=== PATIENT | female | born 1970 | race Hispanic/Latino ===

== ENCOUNTER 2021-09-24 03:10 | Emergency (ER) | payer OTHER ==
[2021-09-24] MEDS ORDERED: ETOMIDATE 20 MG/10 ML VIAL IV ONE (03:11)
[2021-09-24] MEDS ORDERED: ROCURONIUM 50 MG/5 ML VIAL IV ONE (03:11)
--- OUTSIDE RECORDS SUMMARY | 2021-09-24 03:14 | XMS REPORT | Continuity of Care Document ---
:[address] [facility] t Address [address] [place] [address] Care Team Providers Name Role Phone Pcp, Patient Does Not Have A Primary Care Physician [id number] REZA ZAVALETA Attending Clinician Unavailable Reza Zavaleta DO Attending Clinician Caleb Pavon MD Attending Clinician Kylah Chi RN Attending Clinician Unavailable JACKIE SEBASTIAN Attending Clinician Unavailable Only, Ang Db Test Attending Clinician Unavailable Jackie Campbell Attending Clinician Doctor Unassigned, Otho Attending Clinician Unavailable Therapy, Pcp Covid Infusion Attending Clinician Unavailable Christopher Burkett MD Attending Clinician CHRISTOPHER BURKETT Attending Clinician Unavailable Whitley Gu RN Attending Clinician Unavailable Ai Vasquez MD Attending Clinician Payers Payer Name Policy Type Policy Number Effective Date Expiration Date [facility] [id number] 2020 MEDICAID 00:00:00 Problems Condition Condition Condition Status Onset Resolution Last Treating Co mments Source Name Details Category Date Date Treatment Clinician Date Abdominal Abdominal Disease Active Uni vers pain, pain, 7-20 ity of unspec[place] 00 Medical abdominal abdominal Bran ch location location Altered Altered Disease Active Univers mental mental 7-17 ity of status, status, 00:00: [place] unspecifie unspecifie 00 Me dical d altered d altered Bran ch mental mental status status type type Fever of Fever of Disease Active Unive rs unknown unknown 6-04 ity of origin origin 00:00: [place] [facility] Hypokalemi Hypokalemi Disease Active U nivers a a 5-23 ity of 00:00: [place] 00 Medical Branch E46 E46 Disease Active Univers Unspecifie Unspecifie 4-07 it y of d severe d severe 00:00: [place] protein-ca protein-ca 00 Me dical davion davion Branch malnutriti malnutriti on on Streptococ Streptococ Disease Active U nivers geovany geovany 4-05 ity of bacteremia bacteremia [place] Splenic Splenic Disease Active Univers artery artery 2-14 ity of aneurysm aneurysm 00:00: [place] [facility] Alcoholic Alcoholic Disease Active Uni vers cirrhosis cirrhosis 1-30 ity of of liver of liver 00:00: [place] with with 00 Medical ascites ascites Branch Pre-liver Pre-liver Disease Active Overview: Univers transplant transplant 6-25 Formattin ity of , listed , listed 00:00: g of this [place] 00 note Medical might be Branch different from the original. Added automatic ally from request for surgery [id number] Encounter Encounter Disease Active Uni vers for other for other 1-20 ity of general general 00:00: [place] counseling counseling 00 Me dical or advice or advice Bran ch on on contracept contracept ion ion Menopausal Menopausal Disease Active U nivers state state 1-20 ity of 00:00: [place] [facility] Upper Upper Disease Active Univers abdominal abdominal 1-07 ity of pain pain 00:00: [place] [facility] Alcoholic Alcoholic Disease Active 2019-02 Overview: Univers cirrhosis, cirrhosis, 2-18 Formattin ity of unspecifie unspecifie 00:00: g of this [place] d whether d whether 00 note Medi geovany ascites ascites might be Branch present present different from the original. Added automatic ally from request for surgery [id number] Portal Portal Disease Active 2019-02 Overview: Univer s hypertensi hypertensi 2-18 Formattin ity of on on 00:00: g of this [place] 00 note Medical might be Branch different from the original. Added automatic ally from request for surgery [id number] Thrombocyt Thrombocyt Disease Active 2019-02 Overview : Univers openia openia 2-18 Formattin ity of 00:00: g of this [place] 00 note Medical might be Branch different from the original. Added automatic ally from request for surgery [id number] Right Right Disease Active Univers sided sided 2-07 ity of colitis colitis 00:00: [place] 00 Medical Branch Respirator Respirator Disease Active 2018-02 U nivers y failure y failure 2-28 ity of 00:00: [place] 00 Medical Branch Heart burn Heart burn Disease Active Overview : Univers 8-20 Formattin ity of 00:00: g of this [place] 00 note Medical might be Branch different from the original. Added automatic ally from request for surgery [id number] Abdominal Abdominal Disease Active Uni vers pain pain 6-21 ity of 00:00: [place] 00 Medical Branch Colitis Colitis Disease Active Univers 1-19 ity of 00:00: [place] 00 Medical Branch Alcoholic Alcoholic Disease Active 2017-02 Overview: Univers cirrhosis cirrhosis 0-23 Formattin i ty of of liver of liver 00:00: g of this [place] without without 00 note Medical ascites ascites might be Branch different from the original. Added automatic ally from request for surgery [id number] Esophageal Esophageal Disease Active 2017-02 Overview : Univers varices varices 0-23 Formattin ity o f without without 00:00: g of this [place] bleeding, bleeding, 00 note Medi geovany unspecifie unspecifie might be Branch d d different esophageal esophageal from the varices varices original. type type Added automatic ally from request for surgery [id number] Alcohol Alcohol Disease Active 2017-02 Overview: Univ ers dependence dependence 0-23 Formattin ity of in in 00:00: g of this [place] remission remission 00 note Medi geovany might be Branch different from the original. Added automatic ally from request for surgery [id number] Iron Iron Disease Active 2017-02 Overview: Univer s deficiency deficiency 0-23 Formattin ity of anemia, anemia, 00:00: g of this [place] unspecifie unspecifie 00 note Me dical d iron d iron might be Branch deficiency deficiency different anemia anemia from the type type original. Added automatic ally from request for surgery [id number] Hx of type Hx of type Disease Active 2017-02 Overview : Univers B viral B viral 0-23 Formattin ity o f hepatitis hepatitis 00:00: g of this [place] 00 note Medical might be Branch different from the original. Added automatic ally from request for surgery [id number] Gastroesop Gastroesop Disease Active 2017-02 Overview : Univers hageal hageal 0-23 Formattin ity of reflux reflux 00:00: g of this [place] disease, disease, 00 note Medica l esophagiti esophagiti might be Branch s presence s presence different not not from the specified specified original. Added automatic ally from request for surgery [id number] Hepatic Hepatic Disease Active Univers encephalop encephalop 3-03 it y of athy athy 00:00: [place] 00 Medical Branch Urinary Urinary Disease Active Univers retention retention 3-02 ity of 00:00: [place] 00 Medical Branch Iron Iron Disease Active 2016-02 Univers deficiency deficiency 1-09 it y of anemia anemia 00:00: [place] 00 Medical Branch GIB GIB Disease Active Univers (gastroint (gastroint 5-14 it y of estinal estinal 00:00: [place] bleeding) bleeding) 00 [facility] geovany Branch Ascites Ascites Disease Active Univers 8-25 ity of 00:00: [place] 00 Medical Branch No known No known Disease Unive rs active active ity of problems problems [facility] Allergies, Adverse Reactions, Alerts Allergy Allergy Status Severity Reaction(s) Onset Inactive Treating Comm ents Source Name Type Date Date Clinician ASPIRIN DRUG Active Unknown-Cmnt Uni vers INGREDI 5-14 ity of 00:00: [place] 00 Medical Branch Aspirin Propensi Active Unknown - Univ ers ty to See comments 14 ity of adverse 00:00: [place] reaction 00 Medical s Branch NO KNOWN Drug Active [facility] ALLERGIE Class ity of S [facility] Social History Social Habit Start Date Stop Date Quantity Comments Source History SDND University o f Alcohol Frequency [place] [facility] History [facility] University o f Alcohol Std Drinks [place] [facility] [place] History [facility] University o f Alcohol Binge [place] [facility] History of tobacco Passive smoker Un iversity of use [facility] Exposure to 2021-09-13 2021-09-23 Unable to assess Univers ity of SARS-CoV-2 (event) 00:00:00 14:53:00 [facility] Alcohol intake 2021-09-23 2021-09-23 Current University of 00:00:00 00:00:00 non-drinker of [facility] alcohol Branch (finding) Cigarettes smoked 2021-09-04 2021-09-04 Univers ity of current (pack per 00:00:00 00:00:00 [facility]) - Reported Branch Cigarette 2021-09-04 2021-09-04 University of pack-years 00:00:00 00:00:00 [facility] Tobacco use and 2021-09-04 2021-09-04 Smokeless Universit y of exposure 00:00:00 00:00:00 tobacco non-user [facility] dical [place] Tobacco Comment 2021-09-03 2021-09-03 Pt said she Universi ty of 00:00:00 00:00:00 stopped in Aug [facility] 2016 Branch History SDOH 2020-02-24 2020-02-24 5 University o f Financial 00:00:00 00:00:00 [facility] [place] [facility] Branch History SDND Food 2020-02-24 2020-02-24 1 Univers ity of Worry 00:00:00 00:00:00 [facility] [place] [facility] Branch History SDOH Food 2020-02-24 2020-02-24 1 Univers ity of Scarcity 00:00:00 00:00:00 [place] [facility] History SDOH 2020-02-24 2020-02-24 2 University o f Transport Med 00:00:00 00:00:00 [place] [facility] al Branch History SDOH 2020-02-24 2020-02-24 2 University o f Transport Non-Med 00:00:00 00:00:00 [facility] Branch Alcohol Comment 2016-12-25 2016-12-25 quit in sept Univers ity of 00:00:00 00:00:00 2015 [facility] Sex [birth year] Universit y of 00:00:00 00:00:00 [facility] Smoking Status Start Date Stop Date Source Unknown if ever smoked Universit y of [facility] Ex-smoker 2021-09-04 00:00:2021-09-04 00:00:00 [facility] Medical Branch Medications Ordered Filled Start Stop Current Ordering Indication Dosage Frequency Signature Comments Components Source Medication Medication Date Date Medication? Clinician (SIG) Name Name MAGNESIUM Yes 1{tbl} Take 1 Univ ers CARBONATE 7-22 tablet by ity o f ORAL 19:56: mouth [place] [address] daily. Medical Branch docusate Yes 100mg Take 100 Univ ers 100 mg 7-22 mg by ity of capsule 19:56: mouth in [place] [address] the Medical morning. Branch midodrine 5 Yes 5mg Take 5 mg U nivers mg tablet 7-22 by mouth. ity o f 19:56: [place] [address] Medical Branch MAGNESIUM Yes 1{tbl} Take 1 Univ ers CARBONATE 7-22 tablet by ity o f ORAL 19:56: mouth [place] [address] daily. Medical Branch docusate Yes 100mg Take 100 Univ ers 100 mg 7-22 mg by ity of capsule 19:56: mouth in [place] [address] the Medical morning. Branch midodrine 5 Yes 5mg Take 5 mg U nivers mg tablet 7-22 by mouth. ity o f 19:56: [place] [address] Medical Branch pantoprazol 2021- Yes [id number] 40mg Take 1 Univers e 40 mg EC 7-22 10-21 tablet by ity of tablet 00:00: 04:59 mouth in [place] 00 :00 the Medical morning Branch and 1 tablet in the evening. Do all this for 90 days. pantoprazol 2021- Yes [id number] 40mg Take 1 Univers e 40 mg EC 7-22 10-21 tablet by ity of tablet 00:00: 04:59 mouth in [place] 00 :00 the Medical morning Branch and 1 tablet in the evening. Do all this for 90 days. lactulose Yes [id number] 30mL Take 30 mL Univers 10 gram/15 4-08 by mouth 3 ity of mL solution 00:00: (three) [place] 00 times Medical daily. Branch sodium Yes [id number] 650mg Take 1 Uni vers bicarbonate 4-08 tablet by ity of 650 mg 00:00: mouth 2 [place] tablet 00 (two) Medical times Branch daily. lactulose Yes [id number] 30mL Take 30 mL Univers 10 gram/15 4-08 by mouth 3 ity of mL solution 00:00: (three) [place] 00 times Medical daily. Branch sodium 2021-0 Yes [id number] 650mg Take 1 Uni vers bicarbonate 4-08 tablet by ity of 650 mg 00:00: mouth 2 [place] tablet 00 (two) Medical times Branch daily. rifAXIMin 2021-0 Yes 550mg Take 1 Unive rs (XIFAXAN) 1-20 tablet by ity o f 550 mg 00:00: mouth 2 [place] tablet 00 (two) Medical times Branch daily. rifAXIMin 2022-0 Yes 550mg Take 1 Unive rs (XIFAXAN) 1-20 tablet by ity o f 550 mg 00:00: mouth 2 [place] tablet 00 (two) Medical times Branch daily. casirivimab 2020- No [id number] 1200mg Univers -imdevimab 10-26 ity of (REGEN-COV 19:20: 19:20 [place] (EUA)) 00 :00 Medical injection Branch 1,200 mg casirivimab 2020- No [id number] 1200mg 1,200 mg, Univers -imdevimab 10-26 Subcutaneo it y of (REGEN-COV 19:20: 19:20 [place], ONCE, [place] (EUA)) 00 :00 1 dose, Medical injection Fri Branch 1,200 mg 10/26/20 at 1430, Routine casirivimab 2020- No [id number] 1200mg Univers -imdevimab 10-26 ity of (REGEN-COV 19:20: 19:20 [place] (EUA)) 00 :00 Medical injection Branch 1,200 mg casirivimab 2020- No [id number] 1200mg 1,200 mg, Univers -imdevimab 10-26 Subcutaneo it y of (REGEN-COV 19:20: 19:20 [place], ONCE, [place] (EUA)) 00 :00 1 dose, Medical injection Fri Branch 1,200 mg 10/26/20 at 1430, Routine benzonatate 2020- Yes [id number] 200mg Take 2 Univers 100 mg 9-07 capsules ity of capsule 00:00: [place] 2 [place] 00 (two) Medical times Branch daily as needed for Cough. Diclofenac 2020-0 Yes [id number] Apply to Univers Sodium 9-07 area(s) 3 ity of (VOLTAREN) 00:00: (three) [place] 1 % gel 00 times Medical daily. Branch benzonatate 2020-0 Yes [id number] 200mg Take 2 Univers 100 mg 9-07 capsules ity of capsule 00:00: [place] 2 [place] 00 (two) Medical times Branch daily as needed for Cough. Diclofenac 2020-0 Yes [id number] Apply to Univers Sodium 9-07 area(s) 3 ity of (VOLTAREN) 00:00: (three) [place] 1 % gel 00 times Medical daily. Branch benzonatate 2020-0 Yes [id number] 200mg Take 2 Univers 100 mg 9-07 capsules ity of capsule 00:00: [place] 2 [place] 00 (two) Medical times Branch daily as needed for Cough. Diclofenac 2020-0 Yes [id number] Apply to Univers Sodium 9-07 area(s) 3 ity of (VOLTAREN) 00:00: (three) [place] 1 % gel 00 times Medical daily. Branch benzonatate 2020-0 Yes [id number] 200mg Take 2 Univers 100 mg 9-07 capsules ity of capsule 00:00: [place] mouth 2 [place] 00 (two) Medical times Branch daily as needed for Cough. Diclofenac 2020-0 Yes [id number] Apply to Univers Sodium 9-07 area(s) 3 ity of (VOLTAREN) 00:00: (three) [place] 1 % gel 00 times Medical daily. Branch benzonatate 2020-0 Yes [id number] 200mg Take 2 Univers 100 mg 9-07 capsules ity of capsule 00:00: [place] 2 [place] 00 (two) Medical times Branch daily as needed for Cough. Diclofenac 2020-0 Yes [id number] Apply to Univers Sodium 9-07 area(s) 3 ity of (VOLTAREN) 00:00: (three) [place] 1 % gel 00 times Medical daily. Branch benzonatate 2020-0 Yes [id number] 200mg Take 2 Univers 100 mg 9-07 capsules ity of capsule 00:00: [place] 2 [place] 00 (two) Medical times Branch daily as needed for Cough. Diclofenac 2020-0 Yes [id number] Apply to Univers Sodium 9-07 area(s) 3 ity of (VOLTAREN) 00:00: (three) [place] 1 % gel 00 times Medical daily. Branch benzonatate 2020-0 Yes [id number] 200mg Take 2 Univers 100 mg 9-07 capsules ity of capsule 00:00: [place] mouth 2 [place] 00 (two) Medical times Branch daily as needed for Cough. Diclofenac 2020-0 Yes [id number] Apply to Univers Sodium 9-07 area(s) 3 ity of (VOLTAREN) 00:00: (three) [place] 1 % gel 00 times Medical daily. Branch benzonatate 2020-0 Yes [id number] 200mg Take 2 Univers 100 mg 9-07 capsules ity of capsule 00:00: [place] 2 [place] 00 (two) Medical times Branch daily as needed for Cough. Diclofenac 2020-0 Yes [id number] Apply to Univers Sodium 9-07 area(s) 3 ity of (VOLTAREN) 00:00: (three) [place] 1 % gel 00 times Medical daily. Branch benzonatate 2020-0 Yes [id number] 200mg Take 2 Univers 100 mg 9-07 capsules ity of capsule 00:00: [place] mouth 2 [place] 00 (two) Medical times Branch daily as needed for Cough. Diclofenac 2020-0 Yes [id number] Apply to Univers Sodium 9-07 area(s) 3 ity of (VOLTAREN) 00:00: (three) [place] 1 % gel 00 times Medical daily. Branch benzonatate 2020-0 Yes [id number] 200mg Take 2 Univers 100 mg 9-07 capsules ity of capsule 00:00: [place] 2 [place] 00 (two) Medical times Branch daily as needed for Cough. Diclofenac 2020-0 Yes [id number] Apply to Univers Sodium 9-07 area(s) 3 ity of (VOLTAREN) 00:00: (three) [place] 1 % gel 00 times Medical daily. Branch benzonatate 1-0 Yes [id number] 200mg Take 2 Univers 100 mg 9-07 capsules ity of capsule 00:00: by mouth 2 [place] 00 (two) Medical times Branch daily as needed for Cough. Diclofenac 2020-0 Yes [id number] Apply to Univers Sodium 9-07 area(s) 3 ity of (VOLTAREN) 00:00: (three) [place] 1 % gel 00 times Medical daily. Branch benzonatate 2020-0 Yes [id number] 200mg Take 2 Univers 100 mg 9-07 capsules ity of capsule 00:00: [place] mouth 2 [place] 00 (two) Medical times Branch daily as needed for Cough. Diclofenac 2020-0 Yes [id number] Apply to Univers Sodium 9-07 area(s) 3 ity of (VOLTAREN) 00:00: (three) [place] 1 % gel 00 times Medical daily. Branch benzonatate 2020-0 Yes [id number] 200mg Take 2 Univers 100 mg 9-07 capsules ity of capsule 00:00: by mouth 2 [place] 00 (two) Medical times Branch daily as needed for Cough. Diclofenac 2020-0 Yes [id number] Apply to Univers Sodium 9-07 area(s) 3 ity of (VOLTAREN) 00:00: (three) [place] 1 % gel 00 times Medical daily. Branch benzonatate 2020-0 Yes [id number] 200mg Take 2 Univers 100 mg 9-07 capsules ity of capsule 00:00: [place] 2 [place] 00 (two) Medical times Branch daily as needed for Cough. Diclofenac 2020-0 Yes [id number] Apply to Univers Sodium 9-07 area(s) 3 ity of (VOLTAREN) 00:00: (three) [place] 1 % gel 00 times Medical daily. Branch benzonatate 2020-0 Yes [id number] 200mg Take 2 Univers 100 mg 9-07 capsules ity of capsule 00:00: [place] mouth 2 [place] 00 (two) Medical times Branch daily as needed for Cough. Diclofenac 2020-0 Yes [id number] Apply to Univers Sodium 9-07 area(s) 3 ity of (VOLTAREN) 00:00: (three) [place] 1 % gel 00 times Medical daily. Branch benzonatate 2020-0 Yes [id number] 200mg Take 2 Univers 100 mg 9-07 capsules ity of capsule 00:00: [place] mouth 2 [place] 00 (two) Medical times Branch daily as needed for Cough. Diclofenac 2020-0 Yes [id number] Apply to Univers Sodium 9-07 area(s) 3 ity of (VOLTAREN) 00:00: (three) [place] 1 % gel 00 times Medical daily. [place] benzonatate Yes [id number] 200mg Take 2 Univers 100 mg 9-07 capsules ity of capsule 00:00: by mouth 2 [place] 00 (two) Medical times Branch daily as needed for Cough. Diclofenac 2020-0 Yes [id number] Apply to Univers Sodium 9-07 area(s) 3 ity of (VOLTAREN) 00:00: (three) [place] 1 % gel 00 times Medical daily. [place] benzonatate Yes [id number] 200mg Take 2 Univers 100 mg 9-07 capsules ity of capsule 00:00: by mouth 2 [place] 00 (two) Medical times Branch daily as needed for Cough. Diclofenac 0 Yes [id number] Apply to Univers Sodium 9-07 area(s) 3 ity of (VOLTAREN) 00:00: (three) [place] 1 % gel 00 times Medical daily. [place] foLIC acid 2017-02 Yes [id number] 1mg Take 1 U nivers 1 mg tablet 1-27 tablet by ity of 00:00: mouth [place] 00 every Medical morning. [place] foLIC acid 2017-02 Yes [id number] 1mg Take 1 U nivers 1 mg tablet 1-27 tablet by ity of 00:00: mouth [place] 00 every Medical morning. [place] Immunizations Ordered Immunization Filled Immunization Date Status Commen ts Source Name Name Meningococcal 2021-06-17 Completed University of Polysaccharide 00:00:00 [facility] (groups A, C, Y and Branc h W-135) conjugate vaccine (MCV4P) Meningococcal B, OMV 2021-06-17 Completed Univ ersity of 00:00:00 [facility] Meningococcal 2021-06-17 Completed University of Polysaccharide 00:00:00 [facility] (groups A, C, Y and Branc h W-135) conjugate vaccine (MCV4P) Meningococcal B, OMV 2021-06-17 Completed Univ ersity of 00:00:00 [facility] Influenza Virus 2021-05-08 Completed Universit y of Vaccine Quad IM, 00:00:00 [facility] dical Preserv and ABX Free Bran ch 6 MO-64 YRS Pneumococcal 20 2021-05-08 Completed Universit y of Conjugate, PCV20 00:00:00 [facility] dical (Prevnar 20) Branch Meningococcal B, OMV 2021-05-08 Completed Univ ersity of 00:00:00 [facility] SARS-COV-2 COVID-19 2021-05-08 Completed Unive rsity of PFIZER QUEENIE-SUCROSE 00:00:00 [place] [facility] VACCINE (FRANCE TOP) Branch Influenza Virus 2021-05-08 Completed Universit y of Vaccine Quad IM, 00:00:00 [facility] dical Preserv and ABX Free Bran ch 6 MO-64 YRS Pneumococcal 20 2021-05-08 Completed Universit y of Conjugate, PCV20 00:00:00 [facility] dical (Prevnar 20) Branch Meningococcal B, OMV 2021-05-08 Completed Univ ersity of 00:00:00 [facility] SARS-COV-2 COVID-19 2021-05-08 Completed Unive rsity of PFIZER QUEENIE-SUCROSE 00:00:00 [facility] [place] [facility] VACCINE (FRANCE TOP) Branch SARS-COV-2 COVID-19 2020 Completed Unive rsity of CAROL/J&J VACCINE 00:00:00 [facility] SARS-COV-2 COVID-19 2020 Completed Unive rsity of CAROL/J&J VACCINE 00:00:00 [facility] Pneumococcal 2019-02-14 Completed University o f Polysaccharide, 00:00:00 [place] Med ical PPSV23 (PNEUMOVAX) Branch Influenza Virus 2019-02-14 Completed Universit y of Vaccine Quad .5 mL IM 00:00:00 [place] Medical 6+ MO Branch Pneumococcal 2019-02-14 Completed University o f Polysaccharide, 00:00:00 [place] Med ical PPSV23 (PNEUMOVAX) Branch Influenza Virus 2019-02-14 Completed Universit y of Vaccine Quad .5 mL IM 00:00:00 [place] [facility] 6+ MO Branch Vital Signs Vital Name Observation Time Observation Value Comments Source Systolic blood 2021-09-23 23:30:00 142 mm[Hg] Univer sity of pressure [facility] Diastolic blood 2021-09-23 23:30:00 86 mm[Hg] Unive rsity of pressure [place] [facility] Heart rate 2021-09-23 23:30:00 134 /min Universi ty of [place] [facility] Respiratory rate 2021-09-23 23:30:00 18 /min Univ ersity of [place] [facility] Oxygen saturation in 2021-09-23 23:30:00 92 /min University of Arterial blood by [place] Medi geovany Pulse oximetry Branch Body temperature 2021-09-23 20:09:02 37.22 Elizabeth Univ ersity of [place] [facility] Body height 2021-09-23 20:06:00 157.5 cm Universi ty of [place] [facility] Body weight 2021-09-23 20:06:00 40.37 kg Universi ty of [place] [facility] BMI 2021-09-23 20:06:00 16.28 kg/m2 Universi ty of [place] [facility] Body temperature 2020-10-26 19:52:00 36.72 [place] Univ ersity of [place] [facility] Respiratory rate 2020-10-26 19:52:00 20 /min Univ ersity of [place] [facility] Oxygen saturation in 2020-10-26 19:52:00 98 /min University of Arterial blood by [place] Solexant geovany Pulse oximetry Branch Systolic blood 2020-10-26 19:52:00 94 mm[Hg] Univer sity of pressure [place] [facility] Diastolic blood 2020-10-26 19:52:00 58 mm[Hg] Unive rsity of pressure [place] [facility] Heart rate 2020-10-26 19:52:00 63 /min Universi ty of [place] [facility] Systolic blood 2020-10-23 23:16:00 105 mm[Hg] Univer sity of pressure [place] [facility] Diastolic blood 2020-10-23 23:16:00 71 mm[Hg] Unive rsity of pressure [place] [facility] Heart rate 2020-10-23 23:16:00 78 /min Universi ty of [place] [facility] Body temperature 2020-10-23 23:16:00 38.11 Elizabeth Univ ersity of [place] [facility] Respiratory rate 2020-10-23 23:16:00 19 /min Univ ersity of [place] [facility] Body height 2020-10-23 23:16:00 157.5 cm Universi ty of [place] [facility] Body weight 2020-10-23 23:16:00 51.256 kg Universi ty [facility] BMI 2020-10-23 23:16:00 20[facility] in 2020-10-23 23:16:00 97 /min [facility] blood by [facility] Pulse oximetry Branch Procedures Procedure Date / Time Performing Clinician Source Performed [place] ABDOM PARACENTESIS 2021-09-23 22:47:49 Reza Zavaleta [facility] DX/THER W IMAGING [facility] Branch GUIDANCE LIPASE 2021-09-23 20:28:00 Singer [facility] AMMONIA, PLASMA 2021-09-23 20:28:00 Singer [facility] COMP. METABOLIC PANEL 2021-09-23 20:28:00 Reza Zavaleta [facility] [place] ([id number]) [facility] CBC WITH DIFF 2021-09-23 20:28:00 Singer [facility] PROTHROMBIN TIME / INR 2021-09-23 20:28:00 Reza Zavaleta [facility] CONSENT/REFUSAL FOR 2021-09-23 19:53:41 Doctor Unassigned, No Un [facility] DIAGNOSIS AND TREATMENT [facility] ASSIGNMENT OF BENEFITS 2020-10-23 23:04:01 Doctor Unassigned, No [facility] Encounters Start End Encounter Admission Attending Care Care Encounter Source Date/Time Date/Time Type Type Clinicians Facility Department ID 2021-09-23 2021-09-23 Emergency X SINGER [facility] ERT [id number] Univers 14:58:00 18:56:00 REZA ramna [facility] 2021-09-23 2021-09-23 Emergency Singer [facility] [id number] Univers 14:58:00 18:56:00 Reza ROWLAND 350.1.13.10 i ty of [place] 4.2.7.2.686 [facility] [phone] [facility] [address] 2021-09-23 2021-09-23 Telephone Librado [facility] [id number] Univers 00:00:00 00:00:00 Caleb FUENTES 350.1.13.10 [place] [phone] [facility] AND HERMAN [address] [facility] 2020-11-07 2020-11-07 Outpatient R [facility] [id number] Univers 09:00:00 09:00:00 [id number] ity of [facility] 2020-11-07 2020-11-07 Letter RAMONA Chi [id number] Univers 00:00:00 00:00:00 (Out) Kylah Hunter HUSAM 350.1.13.10 it y of HOSPITAL 4.2.7.2.686 Mark as [id number] [facility] [address] 2020-11-05 2020-11-05 Outpatient R [facility] [id number] -[id number] Univers 13:30:00 13:30:00 [id number] ity of [facility] 2020-11-05 2020-11-05 Outpatient R JAZ [facility] [id number] Univers 13:30:00 13:30:00 JACKIE ity o f [facility] 2020-11-05 2020-11-05 Laboratory Only, Ang Db Test [facility] [id number] [id number] Univers 12:57:40 13:12:40 [facility] 350.1.13.10 ity of [place] 4.2.7.2.686 Mark as Ramirez?Blea [phone] [address] Medical [facility] 2020-11-05 2020-11-05 Letter Doctor GREENE 1.2.840.114 [id number] Univers 00:00:00 00:00:00 (Out) Unassigned, HUSAM 350.1.13.10 ity of [place] [facility] 4.2.7.2.686 Mark as [id number] [facility] [address] [place] 2020-11-05 2020-11-05 Letter Doctor GREENE 1.2.840.114 [id number] Univers 00:00:00 00:00:00 (Out) Unassigned, HUSAM 350.1.13.10 ity of [place] [facility] 4.2.7.2.686 Mark as [id number] [address] 2020-10-26 2020-10-26 Nurse Therapy, Pcp Covid Infusion [facility] 1.2.840.114 [id number] Univers 14:05:41 15:05:41 Visit Christopher Burkett 350.1.13.10 ity of [facility] [place].2.7.2.[place] [phone] [place] [facility] [address] [place] 2020-10-26 2020-10-26 Outpatient [facility] [id number] -[id number] Univers 14:00:00 14:00:00 [id number] ity [facility] 2020-10-26 2020-10-26 Outpatient R VICKI [facility] [id number] Univers 14:00:00 14:00:00 CHRISTOPHER raman [facility] 2020-10-25 2020-10-25 Telephone RAMONA Gu [id number] Univers 00:00:00 00:00:00 Whitley WEINER 350.1.13.10 it y of HOSPITAL 4.2.7.2.686 Mark as [id number] [facility] [address] [place] 2020-10-25 2020-10-25 Letter RAMONA Chi 1.2.840.114 [id number] Univers 00:00:00 00:00:00 (Out) Kylah WEINER 350.1.13.[address] [facility] 4.2.7.2.686 Mark as [id number] [address] 2020-10-23 2020-10-23 Urgent Ai Vasquez [facility] 1.2.840.114 [id number] Univers 18:04:57 18:24:57 Care [facility] 350.1.13.10 ity of [place] 4.2.7.2.686 Mark as Ramirez?Blea [id number] [place] [address] [place] [facility] 2020-10-23 2020-10-23 Outpatient R JAZ [facility] [id number] Univers 18:20:00 18:20:00 JACKIE escobar [facility] 2020-10-23 2020-10-23 Orders Doctor GREENE 1.2.840.114 [id number] Univers 00:00:00 00:00:00 Only Unassigned, HUSAM 350.1.13.10 ity of [place] [facility] 4.2.7.2.686 Mark as [id number] [facility] [address] 2020-10-23 2020-10-23 Letter Doctor RAMONA 1.2.840.114 [id number] Univers 00:00:00 00:00:00 (Out) Unassigned, HUSAM 350.1.13.10 ity of [place] [facility] 4.2.7.2.686 Mark as [id number] [facility] [address] 2020-10-23 2020-10-23 Letter Doctor RAMONA 1.2.840.114 [id number] Univers 00:00:00 00:00:00 (Out) Unassigned, HUSAM 350.1.13.10 ity of [place] [facility] 4.2.7.2.686 Mark as [id number] [address] Results Test Description Test Time Test Comments Results Result Comments Source Prothrombin Time / INR 2021-09-23 21:44:03 Test Item Value Reference Range Interpretation Comme nts PROTIME PATIENT (test code = See_Comment H [Automated message] The system 5964-2) which generated this result transmitted ref erence range: 12.0 - 14.7 Sec onds. The reference range was not used to interpret this result as normal/abnormal . INR (test code = 6301-6) Nor mal INR <1.1; Warfarin Therapeutic ran ge 2.0 to 3.0 or 2.5 to 3.5, dep ending upon the indications. Lab Interpretation (test code Abnormal = 40406-6) [facility], [id number] 21:36:43 Test Item Value Reference Range Interpretation Comments AMMONIA (test code = 1515718079) 63 umol/L 9-33 H Lab Interpretation (test code = Abnormal 18757-1) [facility] [id number] 21:35:02 Test Item Value Reference Range Interpretation Comments WBC (test code = See_Comment L [Automated 0390-2) message] The sy stem which generated this result transmitted reference range : 4.30 - 11.10 10*3/?L. The reference range was not used to interpret this result as normal/abnormal . RBC (test code = See_Comment L [Automated 789-8) message] The sy stem which generated this result transmitted reference range : 3.93 - 5.25 10*6/?L. The reference range was not used to interpret this result as normal/abnormal . HGB (test code = 10.7 g/dL 11.6-15 L 718-7) HCT (test code = 32.9 % 35.7-45.2 L 4544-3) MCV (test code = 94.5 fL 80.6-95.5 787-2) MCH (test code = 30.7 pg 25.9-32.8 785-6) MCHC (test code = 32.5 g/dL 31.6-35.1 786-4) RDW-SD (test code = 75.3 fL 39-49.9 H 11665-9) RDW-CV (test code = 21.9 % 12-15.5 H 788-0) PLT (test code = See_Comment L [Automated 777-3) message] The sy stem which generated this result transmitted reference range : 166 - 358 10*3/ ?L. The reference r adelfo was not used to interpret this result as normal/abnormal . MPV (test code = 10.7 fL 9.5-12.9 29770-1) IPF % (test code = 2.7 % 1.3-7.7 Platelet count 8827483082) measured by fluorescence method. NRBC/100 WBC (test See_Comment [Automat ed code = 5316369525) message] The system which generated this result transmitted reference range : 0.0 - 10.0 /100 WBCs. The refer ence range was not u sed to interpret th is result as normal/abnormal . NRBC x10^3 (test code See_Comment [Auto mated = 6581918131) message] The s ystem which generated this result transmitted reference range : 10*3/?L. The reference range was not used to interpret this result as normal/abnormal . GRAN MAT (NEUT) % 75.7 % (test code = 770-8) IMM GRAN % (test code 0.50 % = 5336997360) LYMPH % (test code = 14.2 % 736-9) MONO % (test code = 7.7 % 5905-5) EOS % (test code = 1.4 % 713-8) BASO % (test code = 0.5 % 706-2) GRAN MAT x10^3(ANC) 3.15 10*3/uL 1.88-7.09 (test code = 7484639369) IMM GRAN x10^3 (test 0-0.06 code = 3364058093) LYMPH x10^3 (test code 0.59 10*3/uL 1.32-3.29 L = 731-0) MONO x10^3 (test code 0.32 10*3/uL 0.33-0.92 L = 742-7) EOS x10^3 (test code = 0.06 10*3/uL 0.03-0.39 711-2) BASO x10^3 (test code 0.01-0.07 = 704-7) POLYCHROMASIA (test 2+ See_Comment [Automa eva code = 81686-6) message] The system which generated this result transmitted reference range : 2+. The referen ce range was not u sed to interpret th is result as normal/abnormal . PLT ESTIMATE (test Decreased Normal A code = 9317-9) Lab Interpretation Abnormal (test code = 61672-8) [facility]. METABOLIC PANEL (35050)2021-09-23 21:11:40 Test Item Value Reference Range Interpretation Comments NA (test code = 132 mmol/L 135-145 L 0481848168) K (test code = 4.6 mmol/L 3.5-5 2922937615) CL (test code = 101 mmol/L 98-108 5497419212) CO2 TOTAL (test code = 17 mmol/L 23-31 L 0539951347) AGAP (test code = 2-16 0890110802) BUN (test code = 10 mg/dL 7-23 8641067424) GLUCOSE (test code = 116 mg/dL 70-110 H 9454716690) CREATININE (test code = 0.92 mg/dL 0.5-1.04 1038214577) TOTAL BILI (test code = 6.8 mg/dL 0.1-1.1 H 0560862130) CALCIUM (test code = 8.5 mg/dL 8.6-10.6 L 4454317645) T PROTEIN (test code = 7.2 g/dL 6.3-8.2 8175657196) ALBUMIN (test code = 3.1 g/dL 3.5-5 L 7378199587) ALK PHOS (test code = 169 U/L 34-122 H 1596869299) ALTv (test code = 40 U/L 5-35 H 1742-6) AST(SGOT) (test code = 41 U/L 13-40 H 6766106216) eGFR (test code = mL/min/1.73m2 9019163294) MARLENE (test code = MARLENE) Association of Glomerular Filtration Rate (GFR) and Staging of Kidney Disease* + --+ --+ ------+| GFR (mL/min/1.73 m2) ?| With Kidney Damage ?| ?Without Kidney Damage+ --------+ --------+ +| ?>90 ?| ?Stage one ?| ? Normal ?+ ---+ ---+ -------+| ?60-89 ?| ?Stage two ?| ? Decreased GFR ? + --+ --+ ------+| ?30-59 ?| ?Stage three ?| ? Stage three ? + --+ --+ ------+| ?15-29 ?| ?Stage four ? | ? Stage four ?+ ---+ ---+ -------+| ?<15 (or dialysis) ? ?| ?Stage five ? | ? Stage five ?+ ---+ ---+ -------+ *Each stage assumes the associated GFR level has been in effect for at least three months. ?Stages 1 to 5, with or without kidney disease, indicate chronic kidney disease. Notes: Determination of stages one and two (with eGFR >59mL/min/1.73 m2) requires estimation of kidney damage for at least three months as defined by structural or functional abnormalities of the kidney, manifested by either:Pathological abnormalities or Markers of kidney damage (including abnormalities in the composition of the blood or urine or abnormalities in imaging tests). Lab Interpretation Abnormal (test code = 76007-3) [facility] Test Item Value Reference Range Interpretation Comments LIPASE (test code = 9293380937) 330 U/L 0-220 H Lab Interpretation (test code = Abnormal 30231-2) [facility]"
[2021-09-24] MEDS ORDERED: NA CHLORIDE 0.9% 1,000 ML ONE ×2 (03:43→04:57)
[2021-09-24] MEDS ORDERED: DEXTROSE 10%-WATER 500 ML IV ONE (03:43)
[2021-09-24] MEDS ORDERED: CEFTRIAXONE 1000 MG/VIAL ONE (03:43)
[2021-09-24] MEDS ORDERED: ACETAMINOPHEN 650MG/RECT SUPP PR ONE (03:43)
[2021-09-24 03:44] LABS: Urine Blood Negative (Negative); Urine Glucose Negative (Negative); Urine Protein 1+ (Negative); Urine pH 5.5 (5.0-7.0)
[2021-09-24] MEDS ORDERED: NA CHLORIDE 0.9% 50 ML ONE (03:44)
[2021-09-24 03:52] LABS: Absolute Lymphocytes (CBC) 0.3 K/uL (0.7-4.9); Hematocrit 32.7 % (36.0-45.0); Lymphocytes % 22.8 % (15.3-44.8); MCV 94.3 fL (80-100); MPV 7.7 fL (7.6-11.3); RBC Red Blood Cell Count 3.47 M/uL (3.86-4.86)
[2021-09-24 03:57] LABS: Protime INR 2.38
[2021-09-24] MEDS ORDERED: RSI MEDICATION KIT IV ONE (03:58)
[2021-09-24] MEDS ORDERED: propofoL 1,000 MG/100 ML VIAL IV ONE (03:58)
[2021-09-24 04:16] LABS: Albumin 2.3 g/dL (3.4-5.0); Potassium 5.2 mmol/L (3.5-5.1); Protein, Total 6.3 g/dL (6.4-8.2)
[2021-09-24 04:17] LABS: Bilirubin Total 7.1 mg/dL (0.2-1.0)
[2021-09-24 04:28] LABS: Urine Bacteria <20 /HPF (<20); Urine RBC <5 /HPF (None Seen)
--- NOTE | 2021-09-24 04:56 | EDPHYS ---
Physician Documentation [facility] Name: Heriberto Martinez Age: 51 yrs Sex: Female : 1970 Arrival Date: 09/24/2021 Time: 03:16 Bed 4 Private MD: ED Physician Juli Avendaño HPI: 09/24 03:26 This 51 yrs old Female presents to ER via Unassigned with complaints of GI sd2 Bleeding. 03:26 51 yo F with history of chronic cognitive deficits presents via EMS with chief sd2 complaint of GI bleeding. EMS reports patient had blood coming from her mouth overnight tonight. reported they were seen at [facility] yesterday for the same but paperwork sent with the patient does not mention a GI bleed but states the patient had ascites and a paracentesis was performed with an INR of 2.0 on yesterday's labs. Pt is unable to provide any further history but did have an axillary temp of 100.7F with EMS and was tachycardic with a HR in the 150s. . SOLDERER: 05:06 LMP N/A - unable to obtain as6 Historical: - PMHx: 04:34 Cirrhosis; as6 - Immunization history:: Client reports receiving the 2nd dose of the Covid vaccine. - Social history:: Smoking status: Patient/guardian denies using tobacco, the patient reports quitting approximately 7 years ago. ROS: 03:26 Unable to obtain ROS due to Pt with baseline cognitive deficit unable to answer or sd2 comprehend questions. Exam: 03:26 Constitutional: This is a well developed, well nourished patient who is awake, alert, sd2 and in no acute distress. Head/Face: Normocephalic, atraumatic. Eyes: EOMI, scleral icterus bilaterally Chest/axilla: Normal chest wall appearance and motion. Nontender with no deformity. Cardiovascular: Tachycardic rate and regular rhythm with a normal S1 and S2. No gallops, murmurs, or rubs. 2+ distal pulses. Respiratory: Lungs have equal breath sounds bilaterally, clear to auscultation and percussion. No rales, rhonchi or wheezes noted. No increased work of breathing, no retractions or nasal flaring. Abdomen/GI: Soft, non-tender, with normal bowel sounds. No guarding or rebound. No evidence of tenderness throughout. Moderate abdominal distention present with bruising noted to R flank Skin: Warm, dry with normal turgor. Normal color with no rashes, no lesions, and no evidence of cellulitis. MS/ Extremity: Pulses equal, no cyanosis. Neurovascular intact. Full, normal range of motion. Ambulatory without difficulty. 05:10 ECG was reviewed by the Attending Physician. Sinus tachycardia, rate 160, no STEMI sd2 criteria, significant artifact present and wandering baseline Vital Signs: 03:30 BP 119 / 59; Pulse 160; Resp 25 S; Temp 101.8(R); Pulse Ox 95% on R/A; Weight 41 kg (M);as6 04:09 BP 109 / 84; Pulse 155; Resp 18 A; Temp 100.6(C); Pulse Ox 100% on 100% FiO2 ETT vent; as6 04:40 BP 130 / 20; Pulse 153; Resp 14 A; Temp 99.4(C); Pulse Ox 100% on 100% FiO2 ETT vent; as6 05:05 BP 119 / 82; Pulse 141; Resp 14 A; Temp 98.7(C); Pulse Ox 100% on 80% FiO2 ETT vent; as6 05:30 BP 113 / 71; Pulse 132; Resp 14 A; Temp 97.6(C); Pulse Ox 100% on 80% FiO2 ETT vent; as6 06:00 BP 109 / 72; Pulse 127; Resp 14 A; Temp 96.8(C); Pulse Ox 100% on 80% FiO2 ETT vent; as6 06:37 BP 95 / 66; Pulse 125; Resp 14 A; Temp 96.4(C); Pulse Ox 100% on 70% FiO2 ETT vent; as6 Procedures: 04:04 Intubation: Ventilated with 100% NRB prior to procedure. O2 saturation prior to sd2 procedure was 100 %. Intubated orally using # 3 Alyssa blade with 7.5 mm ETT. was successful on first attempt. Ventilated with Ambu bag. ventilator. Tube secured with ETT gonzales at center of mouth measured 22 cm at lip. Placement verified by CO2 detector with (+) color change, auscultating bilateral breath sounds, O2 saturation after procedure was 100 %. Patient tolerated well. MDM: 03:21 Patient medically screened. sd2 03:26 Differential diagnosis: gastritis, diverticulitis, hemorrhoids, hemorrhagic shock, sd2 varices, among others. Data reviewed: vital signs, nurses notes. 04:06 ED course: Discussion had with patient's fialma at bedside who reports no bleeding sd2 prior to paracentesis being performed yesterday. States this has happened previously and patient normally receives her care at [facility] and is sent to [place] when this happens but he was too concerned to take her that far away. Reports no advanced directives and is agreeable to intubation for protection of patient's airway and to keep her here at our facility unless there is a need for transfer. Intubation performed without complication and will attempt to contact GI senior internet sales consultant at this time. . 04:52 ED course: Unable to get in touch with GI, Dr. Handy, after 3 calls and voicemail sd2 left. We also do not currently have ICU beds. Therefore, I discussed the situation again with patient's fiance. He would like for the patient to be transferred to [facility] and I believe this is appropriate for continuity of care purposes. Pt is currently stable for transfer. Octreotide and protonix drips have been started and pt receiving 2L of IVFs. Dr. Ronquillo at [facility] has accepted the patient for transfer at this time. . 09/24 03:24 Order name: CBC with Diff 09/24 03:24 Order name: CMP; Complete Time: 04:40 sd2 09/24 03:24 Order name: PT-INR; Complete Time: 04:07 sd2 09/24 03:24 Order name: Ptt, Activated; Complete Time: 04:07 sd09/24 03:24 Order name: Lactate; Complete Time: 04:40 sd2 09/24 03:24 Order name: Procalcitonin 09/24 03:24 Order name: Blood Culture Adult (2) sd2 09/24 03:24 Order name: AMMONIA; Complete Time: 04:07 sd2 09/24 03:24 Order name: Lipase; Complete Time: 04:40 sd2 09/24 03:24 Order name: Urine Microscopic Only; Complete Time: 04:40 sd2 09/24 03:33 Order name: Glucose, Ancillary Testing; Complete Time: 04:07 EDMS 09/24 03:36 Order name: Glucose, Ancillary Testing EDMS 09/24 03:40 Order name: Type And Screen sd2 09/24 03:44 Order name: Urine Dipstick-Ancillary; Complete Time: 04:07 EDMS 09/24 03:24 Order name: XRAY Chest (1 view) sd2 09/24 04:01 Order name: XRAY Chest (1 view) bb 09/24 04:02 Order name: SARS-COV-2 RT PCR EDMS 09/24 04:43 Order name: Manual Differential EDMS 09/24 05:05 Order name: ABG Arterial Blood Gas EDMS 09/24 05:14 Order name: Glucose, Ancillary Testing EDMS 09/24 03:24 Order name: Urine Dipstick-Ancillary (obtain specimen); Complete Time: 03:42 sd2 Administered Medications: 03:43 Drug: NS 0.9% 1000 ml Route: IV; Rate: 1000 ml; Site: right upper arm; as6 05:25 Follow up: Response: No adverse reaction; IV Status: Completed infusion; IV Intake: as6 1000ml 03:43 Drug: Rocephin (cefTRIAXone) 2 grams Route: IV; Rate: bolus; Site: right upper arm; as6 05:27 Follow up: Response: No adverse reaction; IV Status: Completed infusion; IV Intake: as6 100ml 03:48 Drug: D10 in Water [4ml/kg] 250 ml Route: IVP; Rate: bolus; Site: right upper arm; as6 05:28 Follow up: Response: No adverse reaction as6 03:49 Drug: Tylenol Suppository 650 mg Route: IL; as6 05:27 Follow up: Response: No adverse reaction; Temperature is decreased as6 03:57 Drug: Etomidate 10 mg Route: IVP; Site: right upper arm; as6 05:28 Follow up: Response: No adverse reaction as6 03:58 Drug: Rocuronium 70 mg Route: IVP; Site: right upper arm; as6 06:46 Follow up: Response: No adverse reaction as6 04:34 Drug: Propofol 5 mcg/kg/min {Note: started at 5 , RASS +1.} Route: IV; Rate: calculated as6 rate; Site: right upper arm; 05:00 Follow up: Response: RASS: Light sedation (-2); IV Status: IV converted to saline lock as6 04:52 Drug: NS 0.9% 1000 ml Route: IV; Rate: 1 bolus; Site: right jugular; as6 05:29 Follow up: Response: No adverse reaction; IV Status: Completed infusion; IV Intake: as6 1000ml 05:04 Drug: ProTONIX (pantoprazole) 40 mg Route: IVP; Site: right jugular; as6 05:29 Follow up: Response: No adverse reaction as6 05:04 Drug: ProTONIX (pantoprazole) 8 mg/hr Route: IV; Rate: 25 ml/hr; Site: right upper arm; as6 05:30 Follow up: IV Status: Infusion continued upon transfer as6 05:16 Drug: Octreotide Infusion (50 mcg/hr) - (Octreotide 500 mcg, NS 0.9% 500 ml) Route: IV; as6 Rate: 50 ml/hr; Site: right jugular; 05:30 Follow up: IV Status: Infusion continued upon transfer as6 05:17 Drug: Octreotide 50 mcg Route: IV; Rate: bolus; Site: right jugular; as6 05:29 Follow up: Response: No adverse reaction; IV Status: Completed infusion; IV Intake: [id number] 05:25 Drug: Lactulose 30 grams Volume: 45 ml; Route: PO; as6 05:29 Follow up: Response: No adverse reaction as6 Disposition: 04:57 Chart complete. sd2 Disposition Summary: 09/24/21 04:55 Transfer Ordered Transfer Location: [facility] sd2 Reason: Higher level of care sd2 Condition: Serious sd2 Problem: an acute exacerbation sd2 Symptoms: have worsened sd2 Accepting Physician: Dr. Ronquillo(09/24/21 06:45) as6 Diagnosis - Acute respiratory failure sd2 - GI Bleed/ Gastrointestinal hemorrhage, unspecified sd2 - Severe sepsis with septic shock sd2 Forms: - Medication Reconciliation Form sd2 - SBAR form sd2 Critical care time excluding procedures: 04:52 Critical care time: Bedside Care: 30 minutes, Consultation: 10 minutes, Family sd2 Intervention: 15 minutes. Total time: 55 minutes Signatures: Dispatcher [employer] EDHardy Richmond RN RN as6 Juli Avendaño MD MD sd2 Corrections: (The following items were deleted from the chart) 04:43 04:01 CBC Smear Scan ordered. EDMS EDMS 06:45 04:55 Dr. Ronquillo sd2 as6
--- NOTE | 2021-09-24 04:56 | ER ---
Nurse's Notes [facility] Name: Heriberto Martinez Age: 51 yrs Sex: Female : 1970 Arrival Date: 09/24/2021 Time: 03:16 Bed 4 Private MD: Diagnosis: Acute respiratory failure;GI Bleed/ Gastrointestinal hemorrhage, unspecified;Severe sepsis with septic shock Presentation: 09/24 03:30 Chief complaint: EMS states: pt was recently discharge from [facility] with a GI bleed, pt as6 now vomiting blood, AAO x0. Coronavirus screen: At this time, the client does not indicate any symptoms associated with coronavirus-19. Ebola Screen: No symptoms or risks identified at this time. Initial Sepsis Screen: Does the patient meet any 2 criteria? RR > 20 per min. Temp <36.0*C (96.8*F)) or > 38.3*C (100.9*F). Altered Mental Status. Yes Does the patient have a suspected source of infection? No. Patient's initial sepsis screen is negative. Risk Assessment: Do you want to hurt yourself or someone else? Unable to obtain. Onset of symptoms was September 24, 2021. 03:30 Method Of Arrival: EMS: [facility] as6 03:30 Acuity: JENNIFER 2 as6 TOWN PLANNER: 05:06 LMP N/A - unable to obtain as6 Historical: - PMHx: 04:34 Cirrhosis; as6 - Immunization history:: Client reports receiving the 2nd dose of the Covid vaccine. - Social history:: Smoking status: Patient/guardian denies using tobacco, the patient reports quitting approximately 7 years ago. Screenin:36 Abuse screen: Denies threats or abuse. Denies injuries from another. Nutritional as6 screening: No deficits noted. Tuberculosis screening: No symptoms or risk factors identified. Fall Risk None identified. Assessment: 03:10 General: Appears distressed, ill, slender, unkempt, Behavior is restless. as6 03:15 GI: Pt is actively vomiting bright red blood. as6 04:10 Respiratory: Ventilator assessment: ET Tube: 7.5 Ventilator Mode: Assist Control (AC) as6 Tidal Volume: 350 Respiratory Rate: 14 FiO2: 100%. PEEP: 5 HOB > 30 degrees. 04:11 Respiratory: Ventilator assessment: ET Tube: 20 cm. at lip. as6 04:37 Pain: Unable to use pain scale. Patient is intubated. as6 05:17 Respiratory: Ventilator assessment: Ventilator Mode: Assist Control (AC) Tidal Volume: as6 350 Respiratory Rate: 14 FiO2: 80 PEEP: 5 HOB > 30 degrees. Vital Signs: 03:30 BP 119 / 59; Pulse 160; Resp 25 S; Temp 101.8(R); Pulse Ox 95% on R/A; Weight 41 kg (M);as6 04:09 BP 109 / 84; Pulse 155; Resp 18 A; Temp 100.6(C); Pulse Ox 100% on 100% FiO2 ETT vent; as6 04:40 BP 130 / 20; Pulse 153; Resp 14 A; Temp 99.4(C); Pulse Ox 100% on 100% FiO2 ETT vent; as6 05:05 BP 119 / 82; Pulse 141; Resp 14 A; Temp 98.7(C); Pulse Ox 100% on 80% FiO2 ETT vent; as6 05:30 BP 113 / 71; Pulse 132; Resp 14 A; Temp 97.6(C); Pulse Ox 100% on 80% FiO2 ETT vent; as6 06:00 BP 109 / 72; Pulse 127; Resp 14 A; Temp 96.8(C); Pulse Ox 100% on 80% FiO2 ETT vent; as6 06:37 BP 95 / 66; Pulse 125; Resp 14 A; Temp 96.4(C); Pulse Ox 100% on 70% FiO2 ETT vent; as6 ED Course: 03:16 Patient arrived in ED. wm 03:21 Juli Avendaño MD is Attending Physician. sd2 03:22 Initial lab(s) drawn, by wy, sent to lab. Accessed peripheral vein via ultrasound, bb utilizing dynamic ultrasound technique Powerglide midline 20g 8cm to right upper arm using hospital protocol with good blood return and flushes easily pt tolerated well. 03:36 Hardy Burrows, RN is Primary Nurse. as6 03:38 Azar cath inserted, using sterile technique, 16 Fr., by wy, balloon inflated, to as6 gravity drainage, urine specimen collected. 03:42 Urine Microscopic Only Sent. as6 03:47 Triage completed. as6 03:50 XRAY Chest (1 view) In Process Unspecified. EDMS 03:58 Notified ED physician of a critical lab result(s). WBC 1.2; Platelet 63. lp1 04:02 Assisted provider with intubation using 7.5 mm ETT via oral route. ET tube secured at as6 20cm at the lips. Set up intubation tray. Intubated by Juli Avendaño MD Placement verified by CO2 detector w/ + color change, auscultating bilateral breath sounds, CXR, Patient tolerated well. 04:02 Patient transferred, IV remains in place. as6 04:03 NGT: inserted 14 Fr. other oral verified placement of air over stomach, verified return as6 of gastric contents. 04:17 Notified ED physician of a critical lab result(s). Total bilirubin 7.1, Lactate of 14.[address] Avendaño notified. 04:24 XRAY Chest (1 view) In Process Unspecified. EDMS 04:35 Inserted saline lock: 18 gauge in right EJ, using aseptic technique. as6 04:35 Arm band placed on. as6 04:36 Placed in gown. Bed in low position. Call light in reach. Side rails up X2. Adult w/ as6 patient. Client placed on continuous cardiac and pulse oximetry monitoring. NIBP monitoring applied. 04:53 Notified ED physician of a critical lab result(s). Bands 61%. lp1 Administered Medications: 03:43 Drug: NS 0.9% 1000 ml Route: IV; Rate: 1000 ml; Site: right upper arm; as6 05:25 Follow up: Response: No adverse reaction; IV Status: Completed infusion; IV Intake: as6 1000ml 03:43 Drug: Rocephin (cefTRIAXone) 2 grams Route: IV; Rate: bolus; Site: right upper arm; as6 05:27 Follow up: Response: No adverse reaction; IV Status: Completed infusion; IV Intake: as6 100ml 03:48 Drug: D10 in Water [4ml/kg] 250 ml Route: IVP; Rate: bolus; Site: right upper arm; as6 05:28 Follow up: Response: No adverse reaction as6 03:49 Drug: Tylenol Suppository 650 mg Route: AL; as6 05:27 Follow up: Response: No adverse reaction; Temperature is decreased as6 03:57 Drug: Etomidate 10 mg Route: IVP; Site: right upper arm; as6 05:28 Follow up: Response: No adverse reaction as6 03:58 Drug: Rocuronium 70 mg Route: IVP; Site: right upper arm; as6 06:46 Follow up: Response: No adverse reaction as6 04:34 Drug: Propofol 5 mcg/kg/min {Note: started at 5 , RASS +1.} Route: IV; Rate: calculated as6 rate; Site: right upper arm; 05:00 Follow up: Response: RASS: Light sedation (-2); IV Status: IV converted to saline lock as6 04:52 Drug: NS 0.9% 1000 ml Route: IV; Rate: 1 bolus; Site: right jugular; as6 05:29 Follow up: Response: No adverse reaction; IV Status: Completed infusion; IV Intake: as6 1000ml 05:04 Drug: ProTONIX (pantoprazole) 40 mg Route: IVP; Site: right jugular; as6 05:29 Follow up: Response: No adverse reaction as6 05:04 Drug: ProTONIX (pantoprazole) 8 mg/hr Route: IV; Rate: 25 ml/hr; Site: right upper arm; as6 05:30 Follow up: IV Status: Infusion continued upon transfer as6 05:16 Drug: Octreotide Infusion (50 mcg/hr) - (Octreotide 500 mcg, NS 0.9% 500 ml) Route: IV; as6 Rate: 50 ml/hr; Site: right jugular; 05:30 Follow up: IV Status: Infusion continued upon transfer as6 05:17 Drug: Octreotide 50 mcg Route: IV; Rate: bolus; Site: right jugular; as6 05:29 Follow up: Response: No adverse reaction; IV Status: Completed infusion; IV Intake: [id number] 05:25 Drug: Lactulose 30 grams Volume: 45 ml; Route: PO; as6 05:29 Follow up: Response: No adverse reaction as6 Medication: 05:06 VIS not applicable for this client. as6 Intake: 05:25 IV: 1000ml; Total: 1000ml. as6 05:27 IV: 100ml; Total: 1100ml. as6 05:29 IV: 1000ml; Total: 2100ml. as6 05:29 IV: 50ml; Total: 2150ml. as6 Outcome: 04:55 ER care complete, transfer ordered by . sd2 06:38 Transferred by ground EMS to [facility], Transfer form as6 completed. X-rays sent w/ patient. 06:38 Condition: stable 06:38 Instructed on the need for transfer. 06:45 Patient left the ED. as6 Signatures: Dispatcher [employer] EDJennyfer Miles, JOSE FRANCISCO RN bb Kiara Dao RN RN lp1 Allison Phipps Ashby, RN RN as6 Juli Avendaño MD MD sd2 Corrections: (The following items were deleted from the chart) 04:42 04:09 BP 109 / 84; Pulse 155bpm; Resp 18bpm; Spontaneous; Pulse Ox 100% FiO2 100% vent; as6 Temp 100.6F Catheter; as6
[2021-09-24 04:57] LABS: Anisocytosis 2+; Blood Morphology Comment NOTED (NOT SEEN); Burr Cells 2+; Platelet Estimate DECR; Target Cells 1+
[2021-09-24] MEDS ORDERED: LACTULOSE 20 GM/30 ML UCUP ONE (04:57)
[2021-09-24] MEDS ORDERED: PANTOPRAZOLE 40 MG INJ ONE (04:57)
[2021-09-24] MEDS ORDERED: NA CHLORIDE 0.9% 0 ML ONE (04:57)
[2021-09-24] MEDS ORDERED: NA CHLORIDE 0.9% 250 ML ONE (04:57)
[2021-09-24 05:04] LABS: Arterial Blood Carboxyhemoglob 0.8 % (0-1.5); Blood Gas Oxyhemoglobin 97.4 % (94-97); Blood O2 Saturation 99.3 % (92-98.5)
[2021-09-24] MEDS ORDERED: OCTREOTIDE ACETATE 500 MCG/ML ONE (05:13)
[2021-09-24] MEDS ORDERED: NA CHLORIDE 0.9% 500 ML ONE (05:13)
[2021-09-24 07:35] VITALS: O2SAT 100
[2021-09-24 07:46] VITALS: BP 95/66; TEMP 96.4
--- NOTE | 2021-09-24 10:37 | EKG ---
Test Date: 2021-09-24 Test Time: 03:27:41 Mobile Security Architect: ZACHARY MEASUREMENT RESULTS: Intervals: Rate: 160 MD: 126 QRSD: 74 QT: 308 QTc: 502 Bishop: P: 65 MD: 126 QRS: 72 T: 70 INTERPRETIVE STATEMENTS: Sinus tachycardia Nonspecific T wave abnormality Abnormal ECG Compared to ECG 01/07/2016 14:43:04 T-wave abnormality now present Sinus rhythm no longer present Left ventricular hypertrophy no longer present Prolonged QT interval no longer present Electronically Signed On 09-24-21 10:35:58 CDT by Kaiden Glavez
--- NOTE | 2021-09-24 13:46 | RAD REPORT ---
EXAM DESCRIPTION: RAD - Chest Single View - 09/24/2021 4:22 am CLINICAL HISTORY: POST ETT COMPARISON: 09/24/2021. TECHNIQUE: XR CHEST 1 VIEW 09/24/2021 4:01 AM CDT FINDINGS: The heart is normal in size. There is a vague left basilar airspace disease. There is no p leural effusion. There is no pneumothorax. There are no acute osseous findings. Endotracheal tube tip is in the lower third of the trachea. NG tube tip is in the stomach right basilar pulmonary nodule m easures at least 1.3 cm and is unchanged. IMPRESSION: Developing left basilar airspace disease with endotracheal tube in place. Unchanged but better visualized right basilar pulmonary nodule. Electronically signed by: Glenroy Peña MD 09/24/2021 6:42 AM CDT Due to temporary technical issues with the PACS/Fluency reporting system, reports are being signed by the in house radiologists without review as a courtesy to insure prompt reporting. The interpreting radiologist is fully responsible for the content of the report.
--- NOTE | 2021-09-24 13:56 | RAD REPORT ---
EXAM DESCRIPTION: RAD - Chest Single View - 09/24/2021 3:48 am CLINICAL HISTORY: AMS, GIB COMPARISON: None. TECHNIQUE: XR CHEST 1 VIEW 09/24/2021 3:24 AM CDT FINDINGS: Cardiac silhouette is normal in size. Lungs are clear without consolidation, atelectasis, mass or edema. There is no pleural effusion. There is no pneumothorax. There are no acute osseous fin dings. IMPRESSION: Clear lungs. Electronically signed by: Glenroy Peña MD 09/24/2021 4:36 AM CDT Due to temporary technical issues with the PACS/Fluency reporting system, reports are being signed by the in house radiologists without review as a courtesy to insure prompt reporting. The interpreting radiologist is fully responsible for the content of the report.
== END 2021-09-24 06:45 | disposition short-term general hospital (02) ==
LOC: ER 03:10
DX: J96.00 Acute respiratory failure, unspecified whether with hypoxia or hypercapnia (principal); R65.21 Severe sepsis with septic shock; K92.2 Gastrointestinal hemorrhage, unspecified; K74.60 Unspecified cirrhosis of liver; Z20.822 Contact with and (suspected) exposure to COVID-19
CPT/HCPCS: 93005; 87040 ×2; 85025; 36415; 82140; 86900; 86850; 87205 ×4; 85610; 86901; 82947 ×2; 83605; 85730; 83690; 80053; 84145; 71045 ×2; 94002; 82805; U0003; J2354; J2704; C9113; J7050; J7040; J7030 ×2; 81003; 81015